=== PATIENT | female | born 1995 | race African-American/Black ===

== ENCOUNTER 2020-01-30 08:51 | Emergency (ER) | payer OTHER ==
[~2020-01-30] VITALS: Ht 167.6 cm; Wt 83.0 kg
[2020-01-30] MEDS ORDERED: LIDOCAINE HCL/EPINEPHRINE 1%-EPI 1:100,000 20 ML VIAL INFIL ONE (09:15)
[2020-01-30] MEDS ORDERED: HYDROCODONE/ACETAMINOPHEN 5/325MG TABLET PO ONE (09:15)
[2020-01-30 10:27] VITALS: BP 141/96
== END 2020-01-30 10:28 | disposition home or self-care (01) ==
LOC: ER 09:01
DX: S61.412A Laceration without foreign body of left hand, initial encounter (principal); S81.011A Laceration without foreign body, right knee, initial encounter; J45.909 Unspecified asthma, uncomplicated; W26.8XXA Contact with other sharp object(s), not elsewhere classified, initial encounter; Y93.89 Activity, other specified; Y92.9 Unspecified place or not applicable
CPT/HCPCS: 12002; 99283; J3490

== ENCOUNTER 2020-05-31 16:15 | Emergency (ER) | payer MEDICAID, OTHER ==
[~2020-05-31] VITALS: Ht 157.5 cm; Wt 82.0 kg
[2020-05-31 16:18] VITALS: BP 123/75
== END 2020-05-31 16:47 | disposition home or self-care (01) ==
LOC: ER 16:15
DX: S31.111D Laceration without foreign body of abdominal wall, left upper quadrant without penetration into peritoneal cavity, subsequent encounter (principal); X58.XXXD Exposure to other specified factors, subsequent encounter; J45.909 Unspecified asthma, uncomplicated; Z98.890 Other specified postprocedural states
CPT/HCPCS: 99281; Z7610

== ENCOUNTER 2021-04-08 04:10 | Emergency (ER) | payer OTHER, MEDICAID ==
[~2021-04-08] VITALS: Ht 157.5 cm; Wt 87.0 kg
[2021-04-08 04:18] VITALS: BP 0/0
== END 2021-04-08 04:33 ==
LOC: ER 04:22
DX: Z02.79 Encounter for issue of other medical certificate (principal); O26.892 Other specified pregnancy related conditions, second trimester; Z3A.20 20 weeks gestation of pregnancy
CPT/HCPCS: 99283

== ENCOUNTER 2021-12-06 08:13 | Emergency (ER) | payer MEDICAID, OTHER ==
[~2021-12-06] VITALS: Ht 160 cm; Wt 77.2 kg
[2021-12-06] MEDS ORDERED: ACETAMINOPHEN 325MG TABLET PO STA (09:05)
[2021-12-06 09:49] LABS: CHLORIDE 105 mEq/L (98-107)
[2021-12-06 10:00] LABS: B-HCG QUANTITATIVE < 1 mIU/mL (<3); ETHANOL BLOOD < 10 mg/dL
[2021-12-06] MEDS ORDERED: ONDANSETRON HCL 4MG/2ML INJ IV STA (10:44)
[2021-12-06] MEDS ORDERED: KETOROLAC 30MG/ML VIAL IV STA (10:44)
[2021-12-06] MEDS ORDERED: SODIUM CHLORIDE 0.9% 1,000 ML IV ONE (10:45)
[2021-12-06 11:14] LABS: HEMATOCRIT. 39.7 % (36.0-48.0); HEMOGLOBIN. 13.1 g/dL (12.0-16.0); MEAN CORPUSCULAR HEMOGLOBIN 28.1 pg (28.0-32.0); MEAN CORPUSCULAR VOLUME 85.3 fL (81.0-99.0); MEAN PLATELET VOLUME 9.1 fl (7.4-10.4); PLATELET 261 x1000/uL (130-400); RED BLOOD CELL COUNT 4.65 mill/uL (4.2-5.4)
[2021-12-06 12:00] LABS: PLATELET ESTIMATE NORMAL
[2021-12-06] MEDS ORDERED: OMEP40CA20 MT (13:37)
[2021-12-06] MEDS ORDERED: ONDA4TAB50 MT (13:37)
[2021-12-06 14:06] VITALS: BP 118/63
== END 2021-12-06 14:08 | disposition home or self-care (01) ==
LOC: ER 08:13
DX: R10.33 Periumbilical pain (principal); J45.909 Unspecified asthma, uncomplicated; Z91.018 Allergy to other foods
CPT/HCPCS: 36415; 74176; 80053; 80320; 83690; 84702; 85025; 96361; 96374; 96375; 99284; J1885; J2405; J7030; G0480

== ENCOUNTER 2024-05-23 13:12 | Emergency (ER) | payer OTHER ==
[~2024-05-23] VITALS: Ht 157.5 cm; Wt 99.3 kg
[~2024-05-23 13:12] MED LIST: OMEP40CA20 MT; ONDA4TAB50 MT
[2024-05-23 13:19] VITALS: O2SAT 100
[2024-05-23] MEDS: ONDANSETRON 4MG ODT PO STA (18:33)
[2024-05-23] MEDS: KETOROLAC 30MG/ML VIAL IM ONE (18:45)
[2024-05-23] MEDS: BACITRACIN ZINC OINT UDPKT TOP ONE (19:43)
[2024-05-23] MEDS: LIDOCAINE HCL/EPINEPHRINE 1%-EPI 1:100,000 20ML VIAL INFIL ONE (19:43)
[2024-05-23] MEDS: HYDROCODONE/ACETAMINOPHEN 5/325MG TABLET PO ONE (19:45)
[2024-05-23 20:37] LABS: BASOPHILS % 0.4 % (0.0-2.0); EOSINOPHILS % 2.3 % (0.0-5.0); HEMATOCRIT. 35.4 % (36.0-48.0); HEMOGLOBIN. 11.5 g/dL (12.0-16.0); LYMPHOCYTES % 13.1 % (20.0-50.0); MEAN CORPUSCULAR HEMOGLOBIN 28.6 pg (28.0-32.0); MEAN CORPUSCULAR HGB CONC 32.5 g/dL (31.0-37.0); MEAN CORPUSCULAR VOLUME 87.9 fL (81.0-99.0); MEAN PLATELET VOLUME 9.1 fl (7.4-10.4); MONOCYTES % 7.4 % (2.0-8.0); NEUTROPHILS % 76.8 % (40.0-76.0); PLATELET 312 x1000/uL (130-400); RED BLOOD CELL COUNT 4.02 mill/uL (4.2-5.4); RED CELL DISTRIBUTION WIDTH 15.7 % (11.6-14.6); WHITE BLOOD COUNT 11.5 x1000/uL (4.5-11.0)
[2024-05-23 20:39] LABS: CARBON DIOXIDE 22 mEq/L (21-32); CHLORIDE 106 mEq/L (98-107); POTASSIUM 4.3 mEq/L (3.5-5.1); SODIUM 138 mEq/L (136-145)
[2024-05-23 20:40] LABS: CALCIUM 9.2 mg/dL (8.7-10.4)
[2024-05-23 20:45] LABS: CREATININE 1.1 mg/dL (0.6-1.0); GLUCOSE 98 mg/dL (70-105); UREA NITROGEN BLOOD 9 mg/dL (9-23)
[2024-05-23 21:14] LABS: HCG SCREEN NEGATIVE
[2024-05-23] MEDS: KETOROLAC 30MG/ML VIAL IM NR (22:06)
[2024-05-23] MEDS ORDERED: HYDR-4001 MT (22:54)
[2024-05-23] MEDS ORDERED: CLIN-194 MT (22:54)
[2024-05-23 23:11] VITALS: BP 134/66; PULSE 96; RESP 16; TEMP 37.16964; O2SAT 100
== END 2024-05-23 23:13 | disposition home or self-care (01) ==
LOC: ER 13:12
DX: L02.214 Cutaneous abscess of groin (principal); J45.909 Unspecified asthma, uncomplicated; I10 Essential (primary) hypertension; Z79.899 Other long term (current) drug therapy; Z98.890 Other specified postprocedural states
CPT/HCPCS: 80048; 84703; 85025; 36415; 96372; 99284; Q0162; J1885; J2004; Z7610 ×4